=== PATIENT | male | born 1930 | race Caucasian/White ===

== ENCOUNTER 2016-06-02 15:38 | Emergency (ER) | payer OTHER ==
[~2016-06-02 15:38] MED LIST: ACET300T52 PO; ADVA115A INH; ALBU83IN INH; AVEL1TAB PO; CHEMOTHERAPY; DESITIN TOP; FLOM5CAP PO; LEXA1TAB PO; MEGA625S PO; MEGE20TA PO; MILKSUS PO; NORC5TAB PO; OMEP20CA3 PO; PERCOCET PO; PRED10TA PO; PROA1AER IN; PROM-190 PO; PROT1TAB2 PO; SPIR1CAP INH; SYMB16INH INH; TYLE325T5 PO; TYLENOL # 3 PO; TYLENOL#3 PO; TYLETAB14 PO; VITATAB11 PO; XANA0.5T PO; ZOFR4TAB3 PO
[2016-06-02] MEDS ORDERED: MORPHINE 4 MG/ML 1ML SYRINGE As Ordered ONE (17:38)
[2016-06-02] MEDS ORDERED: ONDANSETRON 4MG/2ML VIAL (J2405) As Ordered ONE (17:38)
[2016-06-02 17:45] LABS: ADD MORPHOLOGY? YES; BASO % 0.5 % (0.0-1.0); EOS # 0.2 K/mm3 (0.0-0.50); EOS % 5.9 % (0.0-3.0); LARGE UNSTAINED CELL # 0.2 K/mm3 (0.0-0.4); LARGE UNSTAINED CELL % 4.4 % (0.0-4.0); LYMPH # 0.7 K/mm3 (1.5-4.5); LYMPH % 17.1 % (24.0-44.0); MEAN CORPUSCULAR HEMOGLOBIN 28.3 pg (27.0-33.0); MEAN CORPUSCULAR HGB CONC 30.7 g/dl (32.0-36.5); MEAN CORPUSCULAR VOLUME 92.1 fl (80.0-96.0); MONO # 0.3 K/mm3 (0.0-0.8); MONO % 7.2 % (0.0-5.0); NEUTROPHILS # 2.7 K/mm3 (1.8-7.7); NEUTROPHILS % 64.8 % (36.0-66.0); PLATELET COUNT, AUTOMATED 336 k/mm3 (150-450); RED CELL DISTRIBUTION WIDTH 15.8 % (11.5-14.5); WHITE BLOOD COUNT 4.1 K/mm3 (4.0-10.0)
[2016-06-02 17:57] LABS: ANISOCYTOSIS 1+; HYPOCHROMASIA 2+; POLYCHROMASIA 1+
[2016-06-02 18:01] LABS: ALBUMIN 3.2 GM/DL (3.2-5.2); ALBUMIN/GLOBULIN RATIO 1.07 (1.00-1.93); ALKALINE PHOSPHATASE 80 U/L (45-117); ALT/SGPT 11 U/L (12-78); AMYLASE 72 U/L (25-115); ANION GAP 8 MEQ/L (8-16); AST/SGOT 17 U/L (15-37); BILIRUBIN,TOTAL 0.2 MG/DL (0.2-1.0); BLOOD UREA NITROGEN 15 MG/DL (7-18); CALCIUM LEVEL 8.8 MG/DL (8.8-10.2); CARBON DIOXIDE LEVEL 28 MEQ/L (21-32); CHLORIDE LEVEL 105 MEQ/L (98-107); CREATININE FOR GFR 0.68 MG/DL (0.70-1.30); GLOMERULAR FILTRATION RATE > 60.0 (>35); GLUCOSE, FASTING 88 MG/DL (83-110); POTASSIUM SERUM 4.7 MEQ/L (3.5-5.1); SODIUM LEVEL 141 MEQ/L (136-145); TOTAL PROTEIN 6.2 GM/DL (6.4-8.2)
[2016-06-02] MEDS ORDERED: ISOVUE-370 76% 100ML VIAL (Q9967) As Ordered ONE (18:16)
--- NOTE | 2016-06-02 20:10 | REPUSA ---
CLINICAL HISTORY: Abdominal pain. TECHNIQUE: Multiple axial CT images were obtained through the abdomen and pelvis after administratio n of intravenous contrast material. Oral contrast material was not administered. COMMENTS: There is a hypoenhancing mass noted in the anterior segment of right hepatic lobe measuring 5.6 x 3.9 x 4.8 cm highly suspicious for metastatic disease. There are also several scattered hepatic cysts p resent measuring up to 16 mm. The spleen is normal. The gallbladder is within normal limits. The p ancreas is of normal contour and attenuation characteristics. There is no evidence of adrenal mass. Large hiatal hernia is seen. There is apparent thickening of a distal esophageal NG junction wall. Consider further evaluation with upper endoscopy. Both kidneys are mildly atrophic and lobulated. Two nonobstructing calculus noted in the lower pole of the right kidney measuring up to 3 mm. Punctate nonobstructing calculus noted in superior pole of the right and left kidney. There is also punctate nonobstructing calculus noted in the lower pole o f the left kidney. No evidence for appendicitis. No evidence for small or large bowel obstruction. There is diffuse di verticulosis noted involving descending and sigmoid colon without definite evidence of acute divertic ulitis. There are fluid filled thick walled loops of small bowel noted compatible with panenteritis of all small bowel segments involved. There is no evidence of abdominal ascites or lymphadenopathy. There is no evidence of intrinsic or extrinsic bladder mass. There is no pelvic ascites or lymphaden opathy. Images of the lung bases show no evidence of pleural or parenchymal mass. There are no pleural effus ions. The bony structures are free of lytic or blastic lesions. Increased interstitial lung markings noted peripherally compatible with pulmonary fibrosis. Prostate gland is mildly enlarged containing calcifications. IMPRESSION: 1. Increased interstitial lung markings noted peripherally compatible with pulmonary fibrosis. 2. There is a hypoenhancing mass noted in the anterior segment of right hepatic lobe measuring 5.6 x 3.9 cm highly suspicious for metastatic disease. Consider further evaluation with PET CT. 3. Large hiatal hernia is seen. There is apparent thickening of a distal esophageal NG junction wall . Consider follow follow-up upper endoscopy. 4. Bilateral renal nonobstructing calculi. 5. Enteritis. Infectious and inflammatory radiologist considered. Thank you for your kind referral of this patient. We appreciate the opportunity to participate in thi s patient's care.
--- NOTE | 2016-06-02 20:52 | EDDOCDS ---
Nurse's Notes [facility] Name: Ky Escobar Age: 85 yrs Sex: Male : 1930 Arrival Date: 06/02/2016 Time: 15:38 Bed I5 / M5 Private MD: Yovanny Motley A. Diagnosis: Anemia in chronic diseases classified elsewhere;Noninfective gastroenteritis and colitis, unspecified-CA related Presentation: 06/02 15:47 Presenting complaint: Patient states: stomach pain on and off but worse today. Reports kr3 has stomach cancer and thinks he may have internal bleeding again. Had blood transfusion about 12 days ago for low blood counts. Unable to get any further chemo but may do radiation patient reports. Adult Sepsis Screening: The patient does not have new or worsening altered mentation. Patient's respiratory rate is less than 22. Systolic blood pressure is greater than 100. Patient has a qSOFA score of 0- Negative Sepsis Screen. Suicide/Homicide risk assessment- the patient denies having any suicidal and/or homicidal ideations and does not present with any other emotional, behavioral or mental health complaints. Status: Patient is not a chief service observer or dependent. Transition of care: patient was not received from another setting of care. 15:47 Acuity: AUTUMN Level 3 kr3 15:47 Method Of Arrival: Walkin/Carried/Asstd kr3 Triage Assessment: 15:50 General: Appears in no apparent distress, Behavior is appropriate for age, cooperative. kr3 Pain: Location: right lower quadrant and left lower quadrant Pain currently is 9 out of 10 on a pain scale. Quality of pain is described as burning, sharp. GI: Denies constipation, diarrhea, nausea, vomiting. GI: Reports normal bowel movement which have been normal color. Derm: Skin is normal. Historical: - Allergies: PENICILLINS; - Home Meds: 1. nebulizer daily unknown 2. Symbicort inhalation 2 puffs daily - PMHx: Asthma; Cancer, Colon; Emphysema; - PSHx: Knee surgery- Left; - Social history: Smoking status: Patient states former smoker of tobacco. No barriers to communication noted, The patient speaks fluent Setswana, Speaks appropriately for age. - Family history: Not pertinent. - : The pt / caregiver states he / she is not on anticoagulants. Home medication list is obtained from the patient. - Exposure Risk Screening:: None identified. Screenin:41 Infection Control. elp 20:46 Screening information is obtained from the patient. Fall risk: No risks identified. dsf Assistance ADL's: requires no assistance with activities of daily living. Abuse/DV Screen: The patient / caregiver reports he/she is: not in a situation that causes fear, pain or injury. Nutritional screening: No deficits noted. Advance Directives: Currently, there is no health care proxy. home support is adequate. Assessment: 16:11 General: Appears in no apparent distress, comfortable, patient brought back to room, ml6 found in waiting room sitting cross legged in wheelchair reading magazine . Neurological: No deficits noted. Level of Consciousness is awake, alert, Oriented to person, place, time. Cardiovascular: Capillary refill < 3 seconds is brisk in bilateral fingers toes. GI: Abdomen is flat, non- distended Bowel sounds present X 4 quads. Abd is tender to palpation in epigastric area. 17:36 General: Appears in no apparent distress, comfortable. Pain: Location: abdomen and left mb9 lower quadrant Pain currently is 7 out of 10 on a pain scale. Respiratory: Airway is patent Respiratory effort is even, unlabored. GI: Abdomen is flat, non- distended Bowel sounds present X 4 quads. Abd is soft Abd is tender to palpation in left lower quadrant. 18:32 General: Pt to CT and returned IV site remains patent and clear pt into bathroom to dls void.. 18:52 Reassessment: Patient appears in no apparent distress at this time. Patient states mb9 feeling better. Patient states symptoms have improved. General: Appears in no apparent distress, comfortable, Behavior is appropriate for age, cooperative. Pain: Location: abdomen Pain currently is 4 out of 10 on a pain scale. Respiratory: No deficits noted. Airway is patent Respiratory effort is even, unlabored. 19:43 General: Pt resting comfortably in bed watching TV. Reports pain has decreased but is ld5 still present. Reports 7/10. Denies need for additional pain management at this time. Will continue to monitor. 20:47 General: Appears in no apparent distress, comfortable, Behavior is appropriate for age, dsf cooperative. Neurological: Level of Consciousness is awake, alert. Cardiovascular: Capillary refill < 3 seconds. Respiratory: Airway is patent Respiratory effort is even, unlabored, Respiratory pattern is regular, symmetrical. Derm: Skin is pink, warm & dry. Vital Signs: 15:40 BP 149 / 68; Pulse 69; Resp 18; Temp 97.2; Pulse Ox 99% ; Weight 62.14 kg; Height 5 ft. elp 6 in. (167.64 cm); Pain 9/10; 19:01 BP 124 / 58; Pulse 60; Resp 18; Temp 96.2; Pulse Ox 97% ; Pain 8/10; ajs 20:48 BP 149 / 99; Pulse 64; Resp 18; Temp 96.9; Pulse Ox 98% ; Pain 2/10; ajs 15:40 Body Mass Index 22.11 (62.14 kg, 167.64 cm) elp Vitals: 15:40 Log In Time: June 02, 2016 at 15:38. el ED Course: 15:39 Patient visited by Joan Francis PCA. elp 15:39 Yovanny Motley is Private Physician. elp 15:39 Patient moved to Waiting elp 15:41 Patient visited by Joan Francis PCA. elp 15:41 Patient moved to Pre RCE elp 15:49 Triage Initiated kr3 16:09 Patient moved to Triage 2 ml6 16:17 German Bowden PA is PHCP. btw 16:17 Joshua Dial MD is Attending Physician. btw 16:17 Patient visited by German Bowden PA. btw 16:29 Sarita Peterson, THANH is Primary Nurse. js13 16:29 Patient moved to I5 / M5 js13 17:24 Patient visited by Mak Goldberg RN. mb9 17:24 Lactic Acid (Farooq tube on ice) Sent. mb9 17:24 Lipase Sent. mb9 17:24 Amylase Sent. mb9 17:24 Complete Comphrensive Metabolic Sent. mb9 17:24 CBC with Diff Sent. mb9 17:54 Patient visited by Merary Rea PCA. ct3 18:16 PHCP role handed off by German Bowden PA cc10 18:16 Rigo Parra PA-C is PHCP. cc10 18:52 Patient visited by Mak Goldberg,THANH. mb9 19:01 Patient visited by Lindsey Sinha. ajs 19:45 Patient visited by Clarisa Fong RN. ld5 20:02 [facility] Payment Agreement was scanned into [employer] and attached to record. gjb 20:27 CT ABD & PELVIS: IV Contrast Only Returned. EDMS 20:44 Yovanny Motley is Referral Physician. cc10 20:44 Discontinued lock intact, bleeding controlled, pressure dressing applied, No dsf redness/swelling at site. No procedures done that require assistance. 20:46 The patient / caregiver is instructed regarding the plan of care and ED course. dsf 20:50 Patient visited by Lindsey Sinha. ajs Administered Medications: 17:45 Drug: morphine 4 mg [morphine 4 mg/mL intravenous cartridge (1 mL)] Route: IVP; Site: mb9 right antecubital; 17:45 Drug: Ondansetron 4 mg [ondansetron HCl 2 mg/mL intravenous solution (2 mL)] Route: mb9 IVP; Site: right antecubital; Order Results: Lab Order: CBC with Diff; SPEC'M 06/02/16 17:16 Test: WHITE BLOOD COUNT; Value: 4.1; Range: 4.0-10.0; Units: K/mm3; Status: F Test: RED BLOOD COUNT; Value: 3.25; Range: 4.30-6.10; Abnormal: Below low normal; Units: M/mm3; Status: F Test: HEMOGLOBIN; Value: 9.2; Range: 14.0-18.0; Abnormal: Below low normal; Units: g/dl; Status: F Test: HEMATOCRIT; Value: 30.0; Range: 42.0-52.0; Abnormal: Below low normal; Units: %; Status: F Test: MEAN CORPUSCULAR VOLUME; Value: 92.1; Range: 80.0-96.0; Units: fl; Status: F Test: MEAN CORPUSCULAR HEMOGLOBIN; Value: 28.3; Range: 27.0-33.0; Units: pg; Status: F Test: MEAN CORPUSCULAR HGB CONC; Value: 30.7; Range: 32.0-36.5; Abnormal: Below low normal; Units: g/dl; Status: F Test: RED CELL DISTRIBUTION WIDTH; Value: 15.8; Range: 11.5-14.5; Abnormal: Above high normal; Units: %; Status: F Test: PLATELET COUNT, AUTOMATED; Value: 336; Range: 150-450; Units: k/mm3; Status: F Test: NEUTROPHILS %; Value: 64.8; Range: 36.0-66.0; Units: %; Status: F Test: LYMPH %; Value: 17.1; Range: 24.0-44.0; Abnormal: Below low normal; Units: %; Status: F Test: MONO %; Value: 7.2; Range: 0.0-5.0; Abnormal: Above high normal; Units: %; Status: F Test: EOS %; Value: 5.9; Range: 0.0-3.0; Abnormal: Above high normal; Units: %; Status: F Test: BASO %; Value: 0.5; Range: 0.0-1.0; Units: %; Status: F Test: LARGE UNSTAINED CELL %; Value: 4.4; Range: 0.0-4.0; Abnormal: Above high normal; Units: %; Status: F Test: NEUTROPHILS #; Value: 2.7; Range: 1.8-7.7; Units: K/mm3; Status: F Test: LYMPH #; Value: 0.7; Range: 1.5-4.5; Abnormal: Below low normal; Units: K/mm3; Status: F Test: MONO #; Value: 0.3; Range: 0.0-0.8; Units: K/mm3; Status: F Test: EOS #; Value: 0.2; Range: 0.0-0.50; Units: K/mm3; Status: F Test: BASO #; Value: 0.0; Range: 0.0-0.2; Units: K/mm3; Status: F Test: LARGE UNSTAINED CELL #; Value: 0.2; Range: 0.0-0.4; Units: K/mm3; Status: F Lab Order: Type & Screen; SPEC'M 06/02/16 17:16 Test: BLOOD TYPE; Value: A POS; Status: F Test: AB SCREEN (INDIRECT JUAN ALBERTO)GEL; Value: NEGATIVE; Status: F Lab Order: Complete Comphrensive Metabolic; SPEC'M 06/02/16 17:16 Test: GLUCOSE, FASTING; Value: 88; Range: 83-110; Units: MG/DL; Status: F Test: BLOOD UREA NITROGEN; Value: 15; Range: 7-18; Units: MG/DL; Status: F Test: CREATININE FOR GFR; Value: 0.68; Range: 0.70-1.30; Abnormal: Below low normal; Units: MG/DL; Status: F Test: GLOMERULAR FILTRATION RATE; Value: > 60.0; Range: >35; Status: F Test: SODIUM LEVEL; Value: 141; Range: 136-145; Units: MEQ/L; Status: F Test: POTASSIUM SERUM; Value: 4.7; Range: 3.5-5.1; Units: MEQ/L; Status: F Test: CHLORIDE LEVEL; Value: 105; Range: 98-107; Units: MEQ/L; Status: F Test: CARBON DIOXIDE LEVEL; Value: 28; Range: 21-32; Units: MEQ/L; Status: F Test: ANION GAP; Value: 8; Range: 8-16; Units: MEQ/L; Status: F Test: CALCIUM LEVEL; Value: 8.8; Range: 8.8-10.2; Units: MG/DL; Status: F Test: AST/SGOT; Value: 17; Range: 15-37; Units: U/L; Status: F Test: ALT/SGPT; Value: 11; Range: 12-78; Abnormal: Below low normal; Units: U/L; Status: F Test: ALKALINE PHOSPHATASE; Value: 80; Range: 45-117; Units: U/L; Status: F Test: BILIRUBIN,TOTAL; Value: 0.2; Range: 0.2-1.0; Units: MG/DL; Status: F Test: TOTAL PROTEIN; Value: 6.2; Range: 6.4-8.2; Abnormal: Below low normal; Units: GM/DL; Status: F Test: ALBUMIN; Value: 3.2; Range: 3.2-5.2; Units: GM/DL; Status: F Test: ALBUMIN/GLOBULIN RATIO; Value: 1.07; Range: 1.00-1.93; Status: F Test Note: ; Units are mL/min/1.73 m2 Chronic Kidney Disease Staging per NKF: Stage I & II GFR >=60 Normal to Mildly Decreased Stage III GFR 30-59 Moderately Decreased Stage IV GFR 15-29 Severely Decreased Stage V GFR <15 Very Little GFR Left ESRD GFR <15 on [employer]PER[employer] Lab Order: Amylase; SPEC'M 06/02/16 17:16 Test: AMYLASE; Value: 72; Range: 25-115; Units: U/L; Status: F Lab Order: Lipase; SPEC'06/02/16 17:16 Test: LIPASE; Value: 62; Range: 73-393; Abnormal: Below low normal; Units: U/L; Status: F Lab Order: Lactic Acid (Farooq tube on ice); SPEC06/02/16 17:16 Test: LACTIC ACID LEVEL, LACTATE; Value: 0.9; Range: 0.4-2.0; Units: MMOL/L; Status: F Lab Order: RBC MORPH PROF NO CHARGE; SPEC06/02/16 17:16 Test: PLATELET ESTIMATE; Range: NORMAL; Status: I Test: POLYCHROMASIA; Value: 1+; Status: F Test: HYPOCHROMASIA; Value: 2+; Status: F Test: ANISOCYTOSIS; Value: 1+; Status: F Test: PLATELET ESTIMATE; Value: NORMAL; Range: NORMAL; Status: F Radiology Order: CT ABD & PELVIS: IV Contrast Only Test: CT ABD & PELVIS: IV Contrast Only REASON FOR EXAMINATION: increased abdominal pain; ; CLINICAL HISTORY: Abdominal pain.; ; TECHNIQUE: Multiple axial CT images were obtained through the abdomen and pelvis after administratio; n of intravenous contrast material. Oral contrast material was not administered.; ; COMMENTS:; There is a hypoenhancing mass noted in the anterior segment of right hepatic lobe measuring 5.6 x 3.9; x 4.8 cm highly suspicious for metastatic disease. There are also several scattered hepatic cysts p; resent measuring up to 16 mm. The spleen is normal. The gallbladder is within normal limits. The p; ancreas is of normal contour and attenuation characteristics. There is no evidence of adrenal mass.; ; Large hiatal hernia is seen. There is apparent thickening of a distal esophageal NG junction wall.; Consider further evaluation with upper endoscopy.; ; Both kidneys are mildly atrophic and lobulated. Two nonobstructing calculus noted in the lower pole; of the right kidney measuring up to 3 mm. Punctate nonobstructing calculus noted in superior pole of; the right and left kidney. There is also punctate nonobstructing calculus noted in the lower pole o; f the left kidney.; ; No evidence for appendicitis. No evidence for small or large bowel obstruction. There is diffuse di; verticulosis noted involving descending and sigmoid colon without definite evidence of acute divertic; ulitis. There are fluid filled thick walled loops of small bowel noted compatible with panenteritis; of all small bowel segments involved. There is no evidence of abdominal ascites or lymphadenopathy.; ; There is no evidence of intrinsic or extrinsic bladder mass. There is no pelvic ascites or lymphaden; opathy.; ; Images of the lung bases show no evidence of pleural or parenchymal mass. There are no pleural effus; ions. The bony structures are free of lytic or blastic lesions. Increased interstitial lung markings; noted peripherally compatible with pulmonary fibrosis.; ; Prostate gland is mildly enlarged containing calcifications.; ; IMPRESSION:; 1. Increased interstitial lung markings noted peripherally compatible with pulmonary fibrosis.; 2. There is a hypoenhancing mass noted in the anterior segment of right hepatic lobe measuring 5.6 x; 3.9 cm highly suspicious for metastatic disease. Consider further evaluation with PET CT.; 3. Large hiatal hernia is seen. There is apparent thickening of a distal esophageal NG junction wall; . Consider follow follow-up upper endoscopy.; 4. Bilateral renal nonobstructing calculi.; 5. Enteritis. Infectious and inflammatory radiologist considered.; ; ; Thank you for your kind referral of this patient. We appreciate the opportunity to participate in [facility]; s patient's care.; ; Outcome: 20:45 Discharge ordered by Provider. cc10 20:46 CT Study completed. dsf 20:46 Discharge Assessment: patient administered narcotics - yes. Pt provided with safe dsf discharge. 20:49 Discharge Assessment: Patient awake, alert and oriented x 3. No cognitive and/or dsf functional deficits noted. Patient verbalized understanding of disposition instructions. The following High Risk Discharge criteria are identified: None. Discharged to home ambulatory. Condition: stable. Discharge instructions given to patient, Instructed on discharge instructions, follow up and referral plans. medication usage, Demonstrated understanding of instructions, medications, Pt was receptive of discharge instructions/ teaching. Prescriptions given X 2. Property sent home with patient. 20:51 Patient left the ED. dsf Signatures: Dispatcher [employer] Sarita Durand, RN RN dls Isabella Deshpande,RN RN kr3 Antwon Ulloa, RN RN ml6 German Bowden, Clarisa Farias,RN RN ld5 Álvaro, Merary, CLINICAL MATERIAL HANDLER CLINICAL MATERIAL HANDLER ct3 Serina Craft,THANH RN dsf Bharath, Loraine Jackson,THANH RN js13 Penny, Joan, CLINICAL MATERIAL HANDLER CLINICAL MATERIAL HANDLER elp Rigo Parra, PA-C PA-C cc10 Mak Goldberg RN RN mb9 Estelle Cabrera MTDD
--- NOTE | 2016-06-02 20:52 | EDDOCDS ---
Physician Documentation [facility] Name: Ky Escobar Age: 85 yrs Sex: Male : 1930 Arrival Date: 06/02/2016 Time: 15:38 Bed I5 / M5 Private MD: Yovanny Motley A. Disposition: 06/02/16 20:45 Discharged to Home/Self Care. Impression: Noninfective gastroenteritis and colitis, unspecified - CA related, Anemia in chronic diseases classified elsewhere. - Condition is Stable. - Discharge Instructions: Abdominal Pain, Adult, Nausea and Vomiting. - Prescriptions for Zantac 300 mg Oral Tablet - take 1 tablet by ORAL route At bedtime; 30 tablet. ZOFRAN ODT 4 mg - dissolve 1 tablet by ORAL route 4 times per day As needed do not chew, do not swallow whole; 10 tablet. - Medication Reconciliation form. - Follow up: Emergency Department; When: As needed; Reason: Worsening of conditions. Follow up: Yovanny Motley; When: Call to arrange an appointment; Reason: Wound/Symptom Recheck, Recheck today's complaints, Worsening of conditions, Continuance of care. - Problem is chronic. - Symptoms have improved. Historical: - Allergies: PENICILLINS; - Home Meds: 1. nebulizer daily unknown 2. Symbicort inhalation 2 puffs daily - PMHx: Asthma; Cancer, Colon; Emphysema; - PSHx: Knee surgery- Left; - Social history: Smoking status: Patient states former smoker of tobacco. No barriers to communication noted, The patient speaks fluent Tongan, Speaks appropriately for age. - Family history: Not pertinent. - : The pt / caregiver states he / she is not on anticoagulants. Home medication list is obtained from the patient. - Exposure Risk Screening:: None identified. Vital Signs: 06/02 15:40 BP 149 / 68; Pulse 69; Resp 18; Temp 97.2; Pulse Ox 99% ; Weight 62.14 kg / 137 lbs; elp Height 5 ft. 6 in. (167.64 cm); Pain 9/10; 19:01 BP 124 / 58; Pulse 60; Resp 18; Temp 96.2; Pulse Ox 97% ; Pain 8/10; ajs 20:48 BP 149 / 99; Pulse 64; Resp 18; Temp 96.9; Pulse Ox 98% ; Pain 2/10; ajs 15:40 Body Mass Index 22.11 (62.14 kg, 167.64 cm) elp MDM: 16:23 IV Saline Lock ordered. btw 16:25 CBC with Diff Ordered. EDMS 16:25 Type & Screen Ordered. EDMS 16:25 Complete Comphrensive Metabolic Ordered. EDMS 16:25 Amylase Ordered. EDMS 16:25 Lipase Ordered. EDMS 16:25 Lactic Acid (Farooq tube on ice) Ordered. EDMS 16:25 CT ABD & PELVIS: IV Contrast Only Ordered. EDMS 17:35 morphine 4 mg IVP every 30 minutes; Document pain score/vitals after each dose (Hold if btw SBP < 90mmHg) x2 ordered. 17:35 Ondansetron 4 mg IVP once ordered. btw 18:16 CBC with Diff Reviewed. cc10 18:16 Complete Comphrensive Metabolic Reviewed. cc10 18:16 Lipase Reviewed. cc10 18:16 Type & Screen Reviewed. cc10 18:16 Amylase Reviewed. cc10 18:16 Lactic Acid (Farooq tube on ice) Reviewed. cc10 18:16 RBC MORPH PROF NO CHARGE Reviewed. cc10 19:49 Financial registration complete. gjb 20:02 [facility] Payment Agreement was scanned into [employer] and attached to record. gjb 20:44 Fluid Challenge ordered. cc10 Administered Medications: 17:45 Drug: morphine 4 mg [morphine 4 mg/mL intravenous cartridge (1 mL)] Route: IVP; Site: mb9 right antecubital; 17:45 Drug: Ondansetron 4 mg [ondansetron HCl 2 mg/mL intravenous solution (2 mL)] Route: mb9 IVP; Site: right antecubital; Signatures: Dispatcher [employer] Isabella Bassett RN RN noman3 German Bowden PA PA btw Fuller, Desiree, RN RN dsf Coniski, Colin PATamicaC PATamicaC ccEstelle Estrella Michael RN mb9 The chart was reviewed and I authenticate all verbal orders and agree with the evaluation and treatment provided.Attachments: 20:02 [facility] Payment Agreement gj MTDD
--- NOTE | 2016-06-04 21:51 | EDDOCDS ---
Physician Documentation [facility] Name: Ky Escobar Age: 85 yrs Sex: Male : 1930 Arrival Date: 06/02/2016 Time: 15:38 Bed I5 / M5 Private MD: Yovanny Stahl A. Disposition: 06/02/16 20:45 Discharged to Home/Self Care. Impression: Noninfective gastroenteritis and colitis, unspecified - CA related, Anemia in chronic diseases classified elsewhere. - Condition is Stable. - Discharge Instructions: Abdominal Pain, Adult, Nausea and Vomiting. - Prescriptions for Zantac 300 mg Oral Tablet - take 1 tablet by ORAL route At bedtime; 30 tablet. ZOFRAN ODT 4 mg - dissolve 1 tablet by ORAL route 4 times per day As needed do not chew, do not swallow whole; 10 tablet. - Medication Reconciliation form. - Follow up: Emergency Department; When: As needed; Reason: Worsening of conditions. Follow up: Yovanny Stahl; When: Call to arrange an appointment; Reason: Wound/Symptom Recheck, Recheck today's complaints, Worsening of conditions, Continuance of care. - Problem is chronic. - Symptoms have improved. Historical: - Allergies: PENICILLINS; - Home Meds: 1. nebulizer daily unknown 2. Symbicort inhalation 2 puffs daily - PMHx: Asthma; Cancer, Colon; Emphysema; - PSHx: Knee surgery- Left; - Social history: Smoking status: Patient states former smoker of tobacco. No barriers to communication noted, The patient speaks fluent Colombian, Speaks appropriately for age. - Family history: Not pertinent. - : The pt / caregiver states he / she is not on anticoagulants. Home medication list is obtained from the patient. - Exposure Risk Screening:: None identified. Vital Signs: 06/02 15:40 BP 149 / 68; Pulse 69; Resp 18; Temp 97.2; Pulse Ox 99% ; Weight 62.14 kg / 137 lbs; elp Height 5 ft. 6 in. (167.64 cm); Pain 9/10; 19:01 BP 124 / 58; Pulse 60; Resp 18; Temp 96.2; Pulse Ox 97% ; Pain 8/10; ajs 20:48 BP 149 / 99; Pulse 64; Resp 18; Temp 96.9; Pulse Ox 98% ; Pain 2/10; ajs 15:40 Body Mass Index 22.11 (62.14 kg, 167.64 cm) elp MDM: 16:23 IV Saline Lock ordered. btw 16:25 CBC with Diff Ordered. EDMS 16:25 Type & Screen Ordered. EDMS 16:25 Complete Comphrensive Metabolic Ordered. EDMS 16:25 Amylase Ordered. EDMS 16:25 Lipase Ordered. EDMS 16:25 Lactic Acid (Farooq tube on ice) Ordered. EDMS 16:25 CT ABD & PELVIS: IV Contrast Only Ordered. EDMS 17:35 morphine 4 mg IVP every 30 minutes; Document pain score/vitals after each dose (Hold if btw SBP < 90mmHg) x2 ordered. 17:35 Ondansetron 4 mg IVP once ordered. btw 18:16 CBC with Diff Reviewed. cc10 18:16 Complete Comphrensive Metabolic Reviewed. cc10 18:16 Lipase Reviewed. cc10 18:16 Type & Screen Reviewed. cc10 18:16 Amylase Reviewed. cc10 18:16 Lactic Acid (Farooq tube on ice) Reviewed. cc10 18:16 RBC MORPH PROF NO CHARGE Reviewed. cc10 19:49 Financial registration complete. gjb 20:02 [facility] Payment Agreement was scanned into [employer] and attached to record. gjb 20:44 Fluid Challenge ordered. cc10 06/03 11:44 T-Sheet-- Draft Copy was scanned into [employer] and attached to record. gb 06/04 13:08 ED course: dr stahl faxed formal report of ct abd/p for fu mlg. ml Administered Medications: 06/02 17:45 Drug: morphine 4 mg [morphine 4 mg/mL intravenous cartridge (1 mL)] Route: IVP; Site: mb9 right antecubital; 17:45 Drug: Ondansetron 4 mg [ondansetron HCl 2 mg/mL intravenous solution (2 mL)] Route: mb9 IVP; Site: right antecubital; Signatures: Dispatcher MedHost EDMS Joshua Dial MD MD ml Trice Leung, Reg Reg gb Isabella Deshpande RN RN kr3 German Bowden PA PA btw Serina rCaft RN RN dsf Rigo Parra PA-C PATamicaC cc10 Estelle Cabrera Michael RN mb9 The chart was reviewed and I authenticate all verbal orders and agree with the evaluation and treatment provided.Attachments: 20:02 [facility] Payment Agreement gjb 06/03 11:44 T-Sheet-- Draft Copy gb Chart Complete MTDD
--- NOTE | 2016-06-04 21:51 | EDDOCDS ---
Physician Documentation [facility] Name: Ky Escobar Age: 85 yrs Sex: Male : 1930 Arrival Date: 06/02/2016 Time: 15:38 Bed I5 / M5 Private MD: Yovanny Stahl A. Disposition: 06/02/16 20:45 Discharged to Home/Self Care. Impression: Noninfective gastroenteritis and colitis, unspecified - CA related, Anemia in chronic diseases classified elsewhere. - Condition is Stable. - Discharge Instructions: Abdominal Pain, Adult, Nausea and Vomiting. - Prescriptions for Zantac 300 mg Oral Tablet - take 1 tablet by ORAL route At bedtime; 30 tablet. ZOFRAN ODT 4 mg - dissolve 1 tablet by ORAL route 4 times per day As needed do not chew, do not swallow whole; 10 tablet. - Medication Reconciliation form. - Follow up: Emergency Department; When: As needed; Reason: Worsening of conditions. Follow up: Yovanny Stahl; When: Call to arrange an appointment; Reason: Wound/Symptom Recheck, Recheck today's complaints, Worsening of conditions, Continuance of care. - Problem is chronic. - Symptoms have improved. Historical: - Allergies: PENICILLINS; - Home Meds: 1. nebulizer daily unknown 2. Symbicort inhalation 2 puffs daily - PMHx: Asthma; Cancer, Colon; Emphysema; - PSHx: Knee surgery- Left; - Social history: Smoking status: Patient states former smoker of tobacco. No barriers to communication noted, The patient speaks fluent Bolivian, Speaks appropriately for age. - Family history: Not pertinent. - : The pt / caregiver states he / she is not on anticoagulants. Home medication list is obtained from the patient. - Exposure Risk Screening:: None identified. Vital Signs: 06/02 15:40 BP 149 / 68; Pulse 69; Resp 18; Temp 97.2; Pulse Ox 99% ; Weight 62.14 kg / 137 lbs; elp Height 5 ft. 6 in. (167.64 cm); Pain 9/10; 19:01 BP 124 / 58; Pulse 60; Resp 18; Temp 96.2; Pulse Ox 97% ; Pain 8/10; ajs 20:48 BP 149 / 99; Pulse 64; Resp 18; Temp 96.9; Pulse Ox 98% ; Pain 2/10; ajs 15:40 Body Mass Index 22.11 (62.14 kg, 167.64 cm) elp MDM: 16:23 IV Saline Lock ordered. btw 16:25 CBC with Diff Ordered. EDMS 16:25 Type & Screen Ordered. EDMS 16:25 Complete Comphrensive Metabolic Ordered. EDMS 16:25 Amylase Ordered. EDMS 16:25 Lipase Ordered. EDMS 16:25 Lactic Acid (Farooq tube on ice) Ordered. EDMS 16:25 CT ABD & PELVIS: IV Contrast Only Ordered. EDMS 17:35 morphine 4 mg IVP every 30 minutes; Document pain score/vitals after each dose (Hold if btw SBP < 90mmHg) x2 ordered. 17:35 Ondansetron 4 mg IVP once ordered. btw 18:16 CBC with Diff Reviewed. cc10 18:16 Complete Comphrensive Metabolic Reviewed. cc10 18:16 Lipase Reviewed. cc10 18:16 Type & Screen Reviewed. cc10 18:16 Amylase Reviewed. cc10 18:16 Lactic Acid (Farooq tube on ice) Reviewed. cc10 18:16 RBC MORPH PROF NO CHARGE Reviewed. cc10 19:49 Financial registration complete. gjb 20:02 [facility] Payment Agreement was scanned into [employer] and attached to record. gjb 20:44 Fluid Challenge ordered. cc10 06/03 11:44 T-Sheet-- Draft Copy was scanned into [employer] and attached to record. gb 06/04 13:08 ED course: dr stahl faxed formal report of ct abd/p for fu mlg. ml Administered Medications: 06/02 17:45 Drug: morphine 4 mg [morphine 4 mg/mL intravenous cartridge (1 mL)] Route: IVP; Site: mb9 right antecubital; 17:45 Drug: Ondansetron 4 mg [ondansetron HCl 2 mg/mL intravenous solution (2 mL)] Route: mb9 IVP; Site: right antecubital; Signatures: Dispatcher MedHost EDMS Joshua Dial MD MD ml Trice Leung, Reg Reg gb Isabella Deshpande RN RN kr3 German Bowden PA PA btw Serina Craft RN RN dsf Rigo Parra PA-C PATamicaC cc10 Estelle Cabrera Michael RN mb9 The chart was reviewed and I authenticate all verbal orders and agree with the evaluation and treatment provided.Attachments: 20:02 [facility] Payment Agreement gjb 06/03 11:44 T-Sheet-- Draft Copy gb Chart Complete MTDD
--- NOTE | 2016-06-04 21:52 | EDDOCDS ---
Nurse's Notes [facility] Name: Ky Escobar Age: 85 yrs Sex: Male : 1930 Arrival Date: 06/02/2016 Time: 15:38 Bed I5 / M5 Private MD: Yovanny Motley A. Diagnosis: Anemia in chronic diseases classified elsewhere;Noninfective gastroenteritis and colitis, unspecified-CA related Presentation: 06/02 15:47 Presenting complaint: Patient states: stomach pain on and off but worse today. Reports kr3 has stomach cancer and thinks he may have internal bleeding again. Had blood transfusion about 12 days ago for low blood counts. Unable to get any further chemo but may do radiation patient reports. Adult Sepsis Screening: The patient does not have new or worsening altered mentation. Patient's respiratory rate is less than 22. Systolic blood pressure is greater than 100. Patient has a qSOFA score of 0- Negative Sepsis Screen. Suicide/Homicide risk assessment- the patient denies having any suicidal and/or homicidal ideations and does not present with any other emotional, behavioral or mental health complaints. Status: Patient is not a food service director or dependent. Transition of care: patient was not received from another setting of care. 15:47 Acuity: AUTUMN Level 3 kr3 15:47 Method Of Arrival: Walkin/Carried/Asstd kr3 Triage Assessment: 15:50 General: Appears in no apparent distress, Behavior is appropriate for age, cooperative. kr3 Pain: Location: right lower quadrant and left lower quadrant Pain currently is 9 out of 10 on a pain scale. Quality of pain is described as burning, sharp. GI: Denies constipation, diarrhea, nausea, vomiting. GI: Reports normal bowel movement which have been normal color. Derm: Skin is normal. Historical: - Allergies: PENICILLINS; - Home Meds: 1. nebulizer daily unknown 2. Symbicort inhalation 2 puffs daily - PMHx: Asthma; Cancer, Colon; Emphysema; - PSHx: Knee surgery- Left; - Social history: Smoking status: Patient states former smoker of tobacco. No barriers to communication noted, The patient speaks fluent Croatian, Speaks appropriately for age. - Family history: Not pertinent. - : The pt / caregiver states he / she is not on anticoagulants. Home medication list is obtained from the patient. - Exposure Risk Screening:: None identified. Screenin:41 Infection Control. elp 20:46 Screening information is obtained from the patient. Fall risk: No risks identified. dsf Assistance ADL's: requires no assistance with activities of daily living. Abuse/DV Screen: The patient / caregiver reports he/she is: not in a situation that causes fear, pain or injury. Nutritional screening: No deficits noted. Advance Directives: Currently, there is no health care proxy. home support is adequate. Assessment: 16:11 General: Appears in no apparent distress, comfortable, patient brought back to room, ml6 found in waiting room sitting cross legged in wheelchair reading magazine . Neurological: No deficits noted. Level of Consciousness is awake, alert, Oriented to person, place, time. Cardiovascular: Capillary refill < 3 seconds is brisk in bilateral fingers toes. GI: Abdomen is flat, non- distended Bowel sounds present X 4 quads. Abd is tender to palpation in epigastric area. 17:36 General: Appears in no apparent distress, comfortable. Pain: Location: abdomen and left mb9 lower quadrant Pain currently is 7 out of 10 on a pain scale. Respiratory: Airway is patent Respiratory effort is even, unlabored. GI: Abdomen is flat, non- distended Bowel sounds present X 4 quads. Abd is soft Abd is tender to palpation in left lower quadrant. 18:32 General: Pt to CT and returned IV site remains patent and clear pt into bathroom to dls void.. 18:52 Reassessment: Patient appears in no apparent distress at this time. Patient states mb9 feeling better. Patient states symptoms have improved. General: Appears in no apparent distress, comfortable, Behavior is appropriate for age, cooperative. Pain: Location: abdomen Pain currently is 4 out of 10 on a pain scale. Respiratory: No deficits noted. Airway is patent Respiratory effort is even, unlabored. 19:43 General: Pt resting comfortably in bed watching TV. Reports pain has decreased but is ld5 still present. Reports 7/10. Denies need for additional pain management at this time. Will continue to monitor. 20:47 General: Appears in no apparent distress, comfortable, Behavior is appropriate for age, dsf cooperative. Neurological: Level of Consciousness is awake, alert. Cardiovascular: Capillary refill < 3 seconds. Respiratory: Airway is patent Respiratory effort is even, unlabored, Respiratory pattern is regular, symmetrical. Derm: Skin is pink, warm & dry. Vital Signs: 15:40 BP 149 / 68; Pulse 69; Resp 18; Temp 97.2; Pulse Ox 99% ; Weight 62.14 kg; Height 5 ft. elp 6 in. (167.64 cm); Pain 9/10; 19:01 BP 124 / 58; Pulse 60; Resp 18; Temp 96.2; Pulse Ox 97% ; Pain 8/10; ajs 20:48 BP 149 / 99; Pulse 64; Resp 18; Temp 96.9; Pulse Ox 98% ; Pain 2/10; ajs 15:40 Body Mass Index 22.11 (62.14 kg, 167.64 cm) elp Vitals: 15:40 Log In Time: June 02, 2016 at 15:38. el ED Course: 15:39 Patient visited by Joan Francis PCA. elp 15:39 Yovanny Motley is Private Physician. elp 15:39 Patient moved to Waiting elp 15:41 Patient visited by Joan Francis PCA. elp 15:41 Patient moved to Pre RCE elp 15:49 Triage Initiated kr3 16:09 Patient moved to Triage 2 ml6 16:17 German Bowden PA is PHCP. btw 16:17 Joshua Dial MD is Attending Physician. btw 16:17 Patient visited by German Bowden PA. btw 16:29 Sarita Peterson, THANH is Primary Nurse. js13 16:29 Patient moved to I5 / M5 js13 17:24 Patient visited by Mak Goldberg RN. mb9 17:24 Lactic Acid (Farooq tube on ice) Sent. mb9 17:24 Lipase Sent. mb9 17:24 Amylase Sent. mb9 17:24 Complete Comphrensive Metabolic Sent. mb9 17:24 CBC with Diff Sent. mb9 17:54 Patient visited by Merary Rea PCA. ct3 18:16 PHCP role handed off by German Bowden PA cc10 18:16 Rigo Parra PA-C is PHCP. cc10 18:52 Patient visited by Mak Goldberg,THANH. mb9 19:01 Patient visited by Lindsey Sinha. ajs 19:45 Patient visited by Clarisa Fong RN. ld5 20:02 [facility] Payment Agreement was scanned into [employer] and attached to record. gjb 20:27 CT ABD & PELVIS: IV Contrast Only Returned. EDMS 20:44 Yovanny Motley is Referral Physician. cc10 20:44 Discontinued lock intact, bleeding controlled, pressure dressing applied, No dsf redness/swelling at site. No procedures done that require assistance. 20:46 The patient / caregiver is instructed regarding the plan of care and ED course. dsf 20:50 Patient visited by Lindsey Sinha. ajs 06/03 11:44 T-Sheet-- Draft Copy was scanned into [employer] and attached to record. gb Administered Medications: 06/02 17:45 Drug: morphine 4 mg [morphine 4 mg/mL intravenous cartridge (1 mL)] Route: IVP; Site: mb9 right antecubital; 17:45 Drug: Ondansetron 4 mg [ondansetron HCl 2 mg/mL intravenous solution (2 mL)] Route: mb9 IVP; Site: right antecubital; Order Results: Lab Order: CBC with Diff; SPEC'M 06/02/16 17:16 Test: WHITE BLOOD COUNT; Value: 4.1; Range: 4.0-10.0; Units: K/mm3; Status: F Test: RED BLOOD COUNT; Value: 3.25; Range: 4.30-6.10; Abnormal: Below low normal; Units: M/mm3; Status: F Test: HEMOGLOBIN; Value: 9.2; Range: 14.0-18.0; Abnormal: Below low normal; Units: g/dl; Status: F Test: HEMATOCRIT; Value: 30.0; Range: 42.0-52.0; Abnormal: Below low normal; Units: %; Status: F Test: MEAN CORPUSCULAR VOLUME; Value: 92.1; Range: 80.0-96.0; Units: fl; Status: F Test: MEAN CORPUSCULAR HEMOGLOBIN; Value: 28.3; Range: 27.0-33.0; Units: pg; Status: F Test: MEAN CORPUSCULAR HGB CONC; Value: 30.7; Range: 32.0-36.5; Abnormal: Below low normal; Units: g/dl; Status: F Test: RED CELL DISTRIBUTION WIDTH; Value: 15.8; Range: 11.5-14.5; Abnormal: Above high normal; Units: %; Status: F Test: PLATELET COUNT, AUTOMATED; Value: 336; Range: 150-450; Units: k/mm3; Status: F Test: NEUTROPHILS %; Value: 64.8; Range: 36.0-66.0; Units: %; Status: F Test: LYMPH %; Value: 17.1; Range: 24.0-44.0; Abnormal: Below low normal; Units: %; Status: F Test: MONO %; Value: 7.2; Range: 0.0-5.0; Abnormal: Above high normal; Units: %; Status: F Test: EOS %; Value: 5.9; Range: 0.0-3.0; Abnormal: Above high normal; Units: %; Status: F Test: BASO %; Value: 0.5; Range: 0.0-1.0; Units: %; Status: F Test: LARGE UNSTAINED CELL %; Value: 4.4; Range: 0.0-4.0; Abnormal: Above high normal; Units: %; Status: F Test: NEUTROPHILS #; Value: 2.7; Range: 1.8-7.7; Units: K/mm3; Status: F Test: LYMPH #; Value: 0.7; Range: 1.5-4.5; Abnormal: Below low normal; Units: K/mm3; Status: F Test: MONO #; Value: 0.3; Range: 0.0-0.8; Units: K/mm3; Status: F Test: EOS #; Value: 0.2; Range: 0.0-0.50; Units: K/mm3; Status: F Test: BASO #; Value: 0.0; Range: 0.0-0.2; Units: K/mm3; Status: F Test: LARGE UNSTAINED CELL #; Value: 0.2; Range: 0.0-0.4; Units: K/mm3; Status: F Lab Order: Type & Screen; SPEC'M 06/02/16 17:16 Test: BLOOD TYPE; Value: A POS; Status: F Test: AB SCREEN (INDIRECT JUAN ALBERTO)GEL; Value: NEGATIVE; Status: F Lab Order: Complete Comphrensive Metabolic; SPEC'M 06/02/16 17:16 Test: GLUCOSE, FASTING; Value: 88; Range: 83-110; Units: MG/DL; Status: F Test: BLOOD UREA NITROGEN; Value: 15; Range: 7-18; Units: MG/DL; Status: F Test: CREATININE FOR GFR; Value: 0.68; Range: 0.70-1.30; Abnormal: Below low normal; Units: MG/DL; Status: F Test: GLOMERULAR FILTRATION RATE; Value: > 60.0; Range: >35; Status: F Test: SODIUM LEVEL; Value: 141; Range: 136-145; Units: MEQ/L; Status: F Test: POTASSIUM SERUM; Value: 4.7; Range: 3.5-5.1; Units: MEQ/L; Status: F Test: CHLORIDE LEVEL; Value: 105; Range: 98-107; Units: MEQ/L; Status: F Test: CARBON DIOXIDE LEVEL; Value: 28; Range: 21-32; Units: MEQ/L; Status: F Test: ANION GAP; Value: 8; Range: 8-16; Units: MEQ/L; Status: F Test: CALCIUM LEVEL; Value: 8.8; Range: 8.8-10.2; Units: MG/DL; Status: F Test: AST/SGOT; Value: 17; Range: 15-37; Units: U/L; Status: F Test: ALT/SGPT; Value: 11; Range: 12-78; Abnormal: Below low normal; Units: U/L; Status: F Test: ALKALINE PHOSPHATASE; Value: 80; Range: 45-117; Units: U/L; Status: F Test: BILIRUBIN,TOTAL; Value: 0.2; Range: 0.2-1.0; Units: MG/DL; Status: F Test: TOTAL PROTEIN; Value: 6.2; Range: 6.4-8.2; Abnormal: Below low normal; Units: GM/DL; Status: F Test: ALBUMIN; Value: 3.2; Range: 3.2-5.2; Units: GM/DL; Status: F Test: ALBUMIN/GLOBULIN RATIO; Value: 1.07; Range: 1.00-1.93; Status: F Test Note: ; Units are mL/min/1.73 m2 Chronic Kidney Disease Staging per NKF: Stage I & II GFR >=60 Normal to Mildly Decreased Stage III GFR 30-59 Moderately Decreased Stage IV GFR 15-29 Severely Decreased Stage V GFR <15 Very Little GFR Left ESRD GFR <15 on TELECOMM[employer]ICATION[employer] LINE MECHANIC Lab Order: Amylase; SPEC'06/02/16 17:16 Test: AMYLASE; Value: 72; Range: 25-115; Units: U/L; Status: F Lab Order: Lipase; SPEC'06/02/16 17:16 Test: LIPASE; Value: 62; Range: 73-393; Abnormal: Below low normal; Units: U/L; Status: F Lab Order: Lactic Acid (Farooq tube on ice); SPEC06/02/16 17:16 Test: LACTIC ACID LEVEL, LACTATE; Value: 0.9; Range: 0.4-2.0; Units: MMOL/L; Status: F Lab Order: RBC MORPH PROF NO CHARGE; SPEC06/02/16 17:16 Test: PLATELET ESTIMATE; Range: NORMAL; Status: I Test: POLYCHROMASIA; Value: 1+; Status: F Test: HYPOCHROMASIA; Value: 2+; Status: F Test: ANISOCYTOSIS; Value: 1+; Status: F Test: PLATELET ESTIMATE; Value: NORMAL; Range: NORMAL; Status: F Radiology Order: CT ABD & PELVIS: IV Contrast Only Test: CT ABD & PELVIS: IV Contrast Only REASON FOR EXAMINATION: increased abdominal pain; ; CLINICAL HISTORY: Abdominal pain.; ; TECHNIQUE: Multiple axial CT images were obtained through the abdomen and pelvis after administratio; n of intravenous contrast material. Oral contrast material was not administered.; ; COMMENTS:; There is a hypoenhancing mass noted in the anterior segment of right hepatic lobe measuring 5.6 x 3.9; x 4.8 cm highly suspicious for metastatic disease. There are also several scattered hepatic cysts p; resent measuring up to 16 mm. The spleen is normal. The gallbladder is within normal limits. The p; ancreas is of normal contour and attenuation characteristics. There is no evidence of adrenal mass.; ; Large hiatal hernia is seen. There is apparent thickening of a distal esophageal NG junction wall.; Consider further evaluation with upper endoscopy.; ; Both kidneys are mildly atrophic and lobulated. Two nonobstructing calculus noted in the lower pole; of the right kidney measuring up to 3 mm. Punctate nonobstructing calculus noted in superior pole of; the right and left kidney. There is also punctate nonobstructing calculus noted in the lower pole o; f the left kidney.; ; No evidence for appendicitis. No evidence for small or large bowel obstruction. There is diffuse di; verticulosis noted involving descending and sigmoid colon without definite evidence of acute divertic; ulitis. There are fluid filled thick walled loops of small bowel noted compatible with panenteritis; of all small bowel segments involved. There is no evidence of abdominal ascites or lymphadenopathy.; ; There is no evidence of intrinsic or extrinsic bladder mass. There is no pelvic ascites or lymphaden; opathy.; ; Images of the lung bases show no evidence of pleural or parenchymal mass. There are no pleural effus; ions. The bony structures are free of lytic or blastic lesions. Increased interstitial lung markings; noted peripherally compatible with pulmonary fibrosis.; ; Prostate gland is mildly enlarged containing calcifications.; ; IMPRESSION:; 1. Increased interstitial lung markings noted peripherally compatible with pulmonary fibrosis.; 2. There is a hypoenhancing mass noted in the anterior segment of right hepatic lobe measuring 5.6 x; 3.9 cm highly suspicious for metastatic disease. Consider further evaluation with PET CT.; 3. Large hiatal hernia is seen. There is apparent thickening of a distal esophageal NG junction wall; . Consider follow follow-up upper endoscopy.; 4. Bilateral renal nonobstructing calculi.; 5. Enteritis. Infectious and inflammatory radiologist considered.; ; ; Thank you for your kind referral of this patient. We appreciate the opportunity [facility]; s patient's care.; ; Outcome: 20:45 Discharge ordered by Provider. cc10 20:46 CT Study completed. dsf 20:46 Discharge Assessment: patient administered narcotics - yes. Pt provided with safe dsf discharge. 20:49 Discharge Assessment: Patient awake, alert and oriented x 3. No cognitive and/or dsf functional deficits noted. Patient verbalized understanding of disposition instructions. The following High Risk Discharge criteria are identified: None. Discharged to home ambulatory. Condition: stable. Discharge instructions given to patient, Instructed on discharge instructions, follow up and referral plans. medication usage, Demonstrated understanding of instructions, medications, Pt was receptive of discharge instructions/ teaching. Prescriptions given X 2. Property sent home with patient. 20:51 Patient left the ED. dsf Signatures: Dispatcher [employer] EDMS Sarita Peterson, RN RN dls Triec Leung, Reg Reg Isabella Man,RN RN kr3 Antwon Ulloa, RN RN ml6 German Bowden, PA PA mariuszw Clarisa Fong,RN RN ld5 Merary Rea, REGULATOR ASSEMBLER REGULATOR ASSEMBLER ct3 Serina Craft,RN RN dsf Lindsey Sinha Jennifer,RN RN js13 Penny, Joan, REGULATOR ASSEMBLER REGULATOR ASSEMBLER elp Rigo Parra, PA-C PA-C cc10 Mak Goldberg,RN RN mb9 Estelle Cabrera Chart Complete MTDD
== END 2016-06-02 20:51 | disposition home or self-care (01) ==
LOC: M ED 15:38
DX: K58.9 Irritable bowel syndrome, unspecified (principal); D64.9 Anemia, unspecified; J45.909 Unspecified asthma, uncomplicated; J43.9 Emphysema, unspecified; Z85.038 Personal history of other malignant neoplasm of large intestine; Z79.899 Other long term (current) drug therapy; Z88.0 Allergy status to penicillin; Z87.891 Personal history of nicotine dependence
CPT/HCPCS: 36415; 74177; 80053; 82150; 83605; 83690; 85025; 86850; 86900; 86901; 96374; 96375; 99284; J2405; Q9967

== ENCOUNTER → 2016-07-22 | Outpatient (CLI) | payer OTHER ==
[2016-07-22 09:25] LABS: MEAN CORPUSCULAR HEMOGLOBIN 25.9 pg (27.0-33.0); MEAN CORPUSCULAR VOLUME 86.5 fl (80.0-96.0); RED CELL DISTRIBUTION WIDTH 15.6 % (11.5-14.5); WHITE BLOOD COUNT 4.6 K/mm3 (4.0-10.0)
== END ==
LOC: M LAB 08:48
PROVIDERS: ATTEND Family Medicine
DX: D64.9 Anemia, unspecified (principal)